=== PATIENT | male | born 1940 | race Caucasian/White ===

== ENCOUNTER 2021-04-06 13:36 | Emergency (ER) | payer MEDICARE, OTHER ==
[~2021-04-06 13:36] MED LIST: ANTIVERT25 MG PO; ASPIRIN EC81 MG PO; AUGMENTIN 875-1 EACH PO; MAG-OXIDE 400M400 MG PO; MULTI-VITAMIN1 EACH PO; NORCO 5-325 TA1 EACH PO; PANTOPRAZOLE SO40 MG PO; PLAVIX75 MG PO; SIMVASTATIN10 MG PO; TYLENOL #31 EACH PO; VITAMIN B-12500 MC3 PO; ZESTRIL5 MG PO; ZOFRAN4 MG PO; ZOFRAN4 MG SL; ZYRTEC10 MG PO; [UNRECOGNIZED DRUG - OTHER] PO
== END 2021-04-06 16:00 | disposition home or self-care (01) ==
LOC: FER 13:36
DX: S40.211A Abrasion of right shoulder, initial encounter (principal); S70.211A Abrasion, right hip, initial encounter; I10 Essential (primary) hypertension; E78.5 Hyperlipidemia, unspecified; Z86.73 Personal history of transient ischemic attack (TIA), and cerebral infarction without residual deficits; Z79.02 Long term (current) use of antithrombotics/antiplatelets; Z79.82 Long term (current) use of aspirin; Z79.899 Other long term (current) drug therapy; W18.09XA Striking against other object with subsequent fall, initial encounter; Y92.009 Unspecified place in unspecified non-institutional (private) residence as the place of occurrence of the external cause
CPT/HCPCS: 70450; 72125; 73030; 73502